=== PATIENT | female | born 1930 | race Caucasian/White ===

== ENCOUNTER 2016-12-24 18:10 | Emergency (ER) | payer OTHER ==
[~2016-12-24] VITALS: Ht 152.4 cm; Wt 68.0 kg
[~2016-12-24 18:10] MED LIST: ASPI81TA21 PO; BUME1TAB PO; CEPH500 PO; GABA300C3 PO; GLYB5TAB3 PO; ISOS60 PO; LISI-360 PO; PIOG15TA9 PO; PLAV75TA PO; POTA-243 PO; VYTO10TA35 PO; ZOFR4TAB3 SL
[2016-12-24 18:20] VITALS: BP 126/65; PULSE 73; RESP 17; TEMP 98.4; O2SAT 96
--- NOTE | 2016-12-24 18:53 | PD ---
HPI . right shoulder pain Chief Complaint: Fall Time Seen by Provider: 18:52 Travel History International Travel<30 days: No Contact w/Intl Traveler<30days: No Traveled to known affect area: No History of Present Illness HPI 86-year-old female with diabetes here with complaints of a slip and fall accident at the [employer]. Patient tripped over her own feet and now has pain in her right shoulder and arm. She tells me the pain is 9/10 and worse with movement. She denies any head injury or loss of consciousness. 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 She is accompanied by her daughter. PFSH Past Medical History Arthritis: Yes Anxiety: Yes Cardiac Catheterization: Yes High Cholesterol: Yes Chest Pain: Yes Coronary Artery Disease: Yes Diabetes: Yes Diminished Hearing: No GERD: Yes Hypertension: Yes Migraines: Yes Triglycerides - High: Yes Tetanus Vaccination: > 5 Years Influenza Vaccination: No Past Surgical History Appendectomy: Yes Hysterectomy: Yes Social History Alcohol Use: No Tobacco Use: Yes (ONE PACK DAILY) Substance Use: No Allergies-Medications (Allergen,Severity, Reaction): Coded Allergies: No Known Allergies (Verified , 12/24/16) Reported Meds & Prescriptions Reported Meds & Active Scripts Active Percocet (Oxycodone-Acetaminophen) 5-325 mg Tab 1 Tab PO Q6H PRN Zofran ODT (Ondansetron HCl) 4 Mg Tab 4 Mg SL Q6H PRN FOR NAUSEA/VOMITING Keflex 500 mg Cap (Cephalexin Monohydrate) 500 Mg Cap 500 Mg PO TID 7 Days Reported Pioglitazone Hcl/Metformi (Pioglitazone Hcl-Metformin Hcl) 15 Mg Tab 15 Mg PO DAILY Imdur 60 Mg (Isosorbide Mononitrate) 60 Mg Tabcr 60 Mg PO DAILY Glyburide 5 Mg Tab 5 Mg PO DAILY Vytorin 10/40 (Ezetimibe/Simvastatin) Tab 1 Tab PO DAILY Plavix (Clopidogrel Bisulfate) 75 Mg Tab 75 Mg PO DAILY Klor-Con 10 Meq (Potassium Chloride) 10 Meq Tabcr 10 Meq PO DAILY Bumetanide 1 Mg Tab 1 Mg PO DAILY Aspir-Low (Aspirin) 81 Mg Tab 81 Mg PO DAILY Gabapentin 300 Mg Cap 300 Mg PO BID Lisinopril 10 mg (Lisinopril) 10 Mg Tab 10 Mg PO DAILY Review of Systems General / Constitutional: No: Fever Eyes: No: Visual changes HENT: No: Headaches Cardiovascular: No: Chest Pain or Discomfort Respiratory: No: Shortness of Breath Gastrointestinal: No: Abdominal Pain Genitourinary: No: Dysuria Musculoskeletal: Positive: Pain (right arm pain) Skin: No Rash Neurologic: No: Weakness Psychiatric: No: Depression Endocrine: No: Polydipsia Hematologic/Lymphatic: No: Easy Bruising Physical Exam Narrative GENERAL: AAO x 3, no acute distress, Well-nourished, well-developed patient. SKIN: Warm and dry. No visible rashes or bruising. HEAD: Normocephalic and atraumatic. EYES: No scleral icterus. No injection or drainage. ENT: No nasal drainage noted. Mucous membranes pink. Airway patent. NECK: Supple, trachea midline. No JVD. CARDIOVASCULAR: Regular rate and rhythm without murmurs, gallops, or rubs. RESPIRATORY: Breath sounds equal bilaterally. No accessory muscle use. No rhonchi or rales. GASTROINTESTINAL: Abdomen soft, non-tender, nondistended. EXTREMITIES: No cyanosis or edema. Negative point tenderness to the proximal humerus. No obvious deformity, edema or ecchymosis. Roll Up Operator strength is normal bilaterally, except on right elicits pain. BACK: Nontender without obvious deformity. No CVA tenderness. PSYCH: AAO x 3, normal affect. Data Data Last Documented VS Vital Signs Date Time Temp Pulse Resp B/P Pulse Ox O2 Delivery O2 Flow Rate FiO2 12/24/16 18:30 Room Air 12/24/16 18:20 98.4 73 17 126/65 96 Orders Oxycodone-Acetamin 5-325 Mg (Percocet (12/24/16 19:00) Humerus (Min 2vws) (12/24/16 18:58) Shoulder, Complete (>2vws) (12/24/16 18:58) ^ Sling (12/24/16 20:43) MDM Medical Decision Making Medical Screen Exam Complete: Yes Emergency Medical Condition: Yes Medical Record Reviewed: Yes Differential Diagnosis Shoulder fracture, shoulder dislocation, bone contusion Narrative Course 86-year-old female with diabetes here with complaints of a slip and fall accident at the [employer]. Patient tripped over her own feet and now has pain in her right shoulder and arm. She tells me the pain is 9/10 and worse with movement. She denies any head injury or loss of consciousness. 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 She is accompanied by her daughter. Patient seen and examined. She does have significant tenderness over the proximal humerus and some pain in the elbow. In view of her age I will go ahead and proceed with x-ray of the elbow and shoulder. She was given Percocet for pain control. Patient's pain was controlled during her stay Last Impressions Shoulder X-Ray 12/24/[id number] Signed Impressions: Service Date/Time: Saturday, December 24, 2016 19:16 - CONCLUSION: Multipart mildly displaced fractures of the right humeral head and neck Jevon Yoder MD Humerus X-Ray 12/24/161857 Signed Impressions: Service Date/Time: Saturday, December 24, 2016 19:27 - CONCLUSION: Humeral head and neck fractures Jevon Yoder MD Patient has fractures as noted above. I discussed personally with Beto Soria PA-C. He recommended sling and swath for the next week to 10 days. Patient will be followed up in Dr. Melo's office for further recommendations after that. We will provide some pain control medications. She will need to follow-up with her primary care provider for further refills. Patient verbalized understanding of instructions, questions were answered, and thanked me for their care. I advised them if their condition worsens, please return to the nearest emergency room for further care. Diagnosis Primary Impression: Fx humeral neck Qualified Code: S42.211A - Fx humeral neck, right, closed, initial encounter Referrals: Piotr Melo MD Patient Instructions: General Instructions, Proximal Humerus Fracture (ED) Additional Instructions: Rest the affected area as much as possible. WEAR THE SLING AND SWATHE until your follow up appointment with orthopedic. Use ibuprofen as needed for pain and inflammation. You will need to follow-up with her primary care provider for further recommendations and pain control medications. Try to refrain from taking off the sling and swathe. You will need to follow-up with Dr. Melo's office in a week to 10 days. Call them for an appointment. Please return to emergency department if your symptoms return or worsen. Follow up with your primary care provider. Take medications as prescribed. Med/Other Pt SpecificInfo: Prescription(s) given Scripts Oxycodone-Acetaminophen (Percocet)5-325 mg Tab1 Tab PO Q6H PRN (PAIN) #15 TAB Ref 0 Prov:Haile Monreal MD 12/24/16 Disposition: 01 DISCHARGE HOME Condition: Stable Sherin Bob Dec 24, 2016 18:53
[2016-12-24] MEDS ORDERED: oxyCODONE/ACETAMINOPHEN 5 MG/325 MG TAB PO ONE (19:00)
--- NOTE | 2016-12-24 19:48 | RADHPO ---
EXAM DATE/TIME: 12/24/2016 19:16 [facility] COMPARISON: No previous studies available for comparison. INDICATIONS : Right shoulder pain post fall. MEDICAL HISTORY : None. SURGICAL HISTORY : None. ENCOUNTER: Initial ACUITY: 1 day PAIN SCORE: 10/10 LOCATION: Right upper extremity FINDINGS: There is a multipart fracture of the right humeral head and neck with mild displacement of multiple f ragments. The humeral head remains situated over the bony glenoid. The adjacent scapula and clavicle appear intact. The ribs appear intact. CONCLUSION: Multipart mildly displaced fractures of the right humeral head and neck Jevon Yoder MD on December 24, 2016 at 19:45 Board Certified Radiologist. This report was verified electronically.
--- NOTE | 2016-12-24 19:53 | RADHPO ---
EXAM DATE/TIME: 12/24/2016 19:27 [facility] COMPARISON: No previous studies available for comparison. INDICATIONS : Right proximal humerus pain post fall. MEDICAL HISTORY : None. SURGICAL HISTORY : None. ENCOUNTER: Initial ACUITY: 1 day PAIN SCORE: 10/10 LOCATION: Right upper extremity FINDINGS: Mildly displaced fractures of the right humeral head and neck noted. The more distal humerus is intac t. CONCLUSION: Humeral head and neck fractures Jevon Yoder MD on December 24, 2016 at 19:51 Board Certified Radiologist. This report was verified electronically.
[2016-12-24] MEDS ORDERED: PERC5TAB12 PO (20:51)
== END 2016-12-24 21:20 | disposition home or self-care (01) ==
LOC: PHEFT 18:10
DX: S42.211A Unspecified displaced fracture of surgical neck of right humerus, initial encounter for closed fracture (principal); S42.201A Unspecified fracture of upper end of right humerus, initial encounter for closed fracture; I10 Essential (primary) hypertension; E11.9 Type 2 diabetes mellitus without complications; F17.210 Nicotine dependence, cigarettes, uncomplicated; W01.0XXA Fall on same level from slipping, tripping and stumbling without subsequent striking against object, initial encounter; Y92.89 Other specified places as the place of occurrence of the external cause; Z79.84 Long term (current) use of oral hypoglycemic drugs
CPT/HCPCS: 73030; 73060